=== PATIENT | female | born 1950 | race Caucasian/White ===

== ENCOUNTER 2019-06-23 10:35 | Emergency (ER) | payer MEDICARE ==
[~2019-06-23] VITALS: Ht 172.7 cm; Wt 95.5 kg
--- NOTE | 2019-06-23 11:07 | NUR ---
[employer]ORER: PT AMBULATORY TO ROOM FROM LOBBY
--- NOTE | 2019-06-23 11:20 | NUR ---
LUNCH RN: PT PRESENTING TO ER FOR EPIGASTRIC PAIN RADIATING TO RUQ AND BILATERAL FLANK INTERMITTENT. PAIN CAUSING NAUSEA, NO V/D. CONNECTED TO ALL MONITORING, HTN AND IRREGULAR RHYTHM NOTED. HX OF AFIB ON BLOOD THINNER. IV PLACED, LABS DRAWN. PT UP TO RESTROOM WITH STEADY GAIT, UA COLLECTED AND SENT TO LAB. BLANKET PROVIDED. CALL LIGHT WITHIN REACH.
[2019-06-23] MEDS ORDERED: MORPHINE SULFATE 4 MG/ML, 1ML IVPush PRN (11:30)
[2019-06-23] MEDS ORDERED: ONDANSETRON 2MG/ML, 2ML IVPush ONE (11:30)
[2019-06-23 11:52] LABS: BASOPHILS # (AUTO) 0.02 x10^3/uL (0-0.1); BASOPHILS % (AUTO) 0 % (0-1); EOSINOPHILS # (AUTO) 0.08 x10^3/uL (0-0.4); EOSINOPHILS % (AUTO) 1 % (1-7); LYMPHOCYTES # (AUTO) 1.74 x10^3/uL (1-3.4); LYMPHOCYTES % (AUTO) 30 % (22-44); MD NO; MEAN CORPUSCULAR HEMOGLOBIN 31.3 pg (27.0-34.8); MEAN CORPUSCULAR HGB CONC 33.5 g/dL (32.4-35.8); MEAN CORPUSCULAR VOLUME 93.5 fL (80-100); MEAN PLATELET VOLUME 7.3 fL (7.4-10.4); MONOCYTES # (AUTO) 0.51 x10^3/uL (0.2-0.8); MONOCYTES % (AUTO) 9 % (2-9); NEUTROPHILS # (AUTO) 3.39 x10^3/uL (1.8-6.8); NEUTROPHILS % (AUTO) 59 % (42-75); PLATELET COUNT 216 x10^3/uL (130-400); RED BLOOD COUNT 4.53 x10^6/uL (3.82-5.3); RED CELL DISTRIBUTION WIDTH 13.9 % (9.6-15.2)
--- NOTE | 2019-06-23 12:00 | NUR ---
report received from CLEMENTINA Zhao, pt is a&o, resps even and unlabored, nadn. pt has no complaint at this time. awaiting labs and dispo, pt declining pain medication.
[2019-06-23 12:03] LABS: INTERNATIONAL NORMALIZED RATIO 0.98 (0.93-1.1); PROTHROMBIN TIME 10.4 Seconds (9.6-11.5)
[2019-06-23 12:04] LABS: ALBUMIN 4.2 g/dL (3.4-5.0); ANION GAP 6 mmol/L (5-15); CALCIUM 9.3 mg/dL (8.5-10.1); CHLORIDE 109 mmol/L (98-107)
[2019-06-23 12:08] LABS: MICROSCOPIC INDICATED
[2019-06-23 12:10] LABS: ALANINE AMINOTRANSFERASE 28 U/L (12-78); ALKALINE PHOSPHATASE 66 U/L (45-117); BILIRUBIN,TOTAL 0.8 mg/dL (0.2-1.0); CREATININE 0.88 mg/dL (0.55-1.02); TOTAL PROTEIN 7.9 g/dL (6.4-8.2); TROPONIN I < 0.015 ng/mL (0.000-0.045)
[2019-06-23] MEDS ORDERED: SODIUM CHLORIDE FLUSH 10ML SYR IVF ONE (12:30)
[2019-06-23 12:36] LABS: CULTURE INDICATED? YES
--- NOTE | 2019-06-23 13:20 | NUR ---
PT TO CT.
[2019-06-23] MEDS ORDERED: PLEASE ENTER ALLERGIES MC SCH (13:30)
[2019-06-23] MEDS ORDERED: ACETAMINOPHEN 325 MG TABLET PO ONE (13:30)
[2019-06-23] MEDS ORDERED: ACETAMINOPHEN 325 MG TABLET ONE (13:49)
--- NOTE | 2019-06-23 13:52 | NUR ---
PT BACK FROM CT. PT DENIES NEED FOR MORPHINE, REQ TYLENOL. PT A&O, RESPS EVEN AND UNLABORED, NO N/V . ALL RESULTS BACK, CHART UP FOR RECHECK, JOHN MARISCAL AND DISPO.
--- NOTE | 2019-06-23 15:03 | NUR ---
DC ORDERS RECEIVED, AWAITING PAPERWORK FROM AT THIS TIME.
--- NOTE | 2019-06-23 15:08 | NUR ---
pt up to bathroom with steady gait, now back in bed. pt informed of POC, awaiting dc paperwork. report given to CLEMENTINA Aly.
--- NOTE | 2019-06-23 15:21 | NUR ---
REPORT FROM CLEMENTINA FAY.PT SITTING UP IN [facility]. READING A BOOK. DISCUSSION WITH ERP REGARDING POC (ESOPHAGRAM). PT UPDATED. PT STATES "I'D RATHER NOT GET THAT STUDY, I JUST HAD A BARRIUM SWALLOW TEST RECENTLY". PT ELECTING FOR DC. ERP AWARE. AWAITING ORDERS.
[2019-06-23] MEDS ORDERED: MAALOX/HYOSCYAMINE/LIDOCAINE 45 ML BTL ONE (15:26)
[2019-06-23 15:30] VITALS: BP 174/82
--- NOTE | 2019-06-23 15:30 | NUR ---
PT MEDICATED WITH GI COCKTAIL PER VERBAL ORDER
--- NOTE | 2019-06-23 15:47 | NUR ---
PT REPORTS MILD IMPROVEMENT IN PAIN, CONTINUES TO REFUSE ORDERED MORPHINE/ZOFRAN. POC IS DC. IV DC'D. PT OFF MONITORING AND ASKED TO DRESS. AWAITING DC PAPERWORK
[2019-06-23] MEDS ORDERED: MAALOX/HYOSCYAMINE/LIDOCAINE 45 ML BTL PO ONE (16:00)
--- NOTE | 2019-06-23 16:00 | NUR ---
DC EDUCATION PROVIDED, PT DEMONSTRATES UNDERSTANDING. PT AMBUALTED STEADILY TO DC WITH RN.
[2019-06-23] MEDS ORDERED: OMNIPAQUE 350 MG/ML, 100ML BOTTLE ONE (18:03)
== END 2019-06-23 16:17 ==
LOC: ED 16:11
DX: R10.11 Right upper quadrant pain (principal); R10.13 Epigastric pain; R19.7 Diarrhea, unspecified; I10 Essential (primary) hypertension; I48.91 Unspecified atrial fibrillation; Z87.891 Personal history of nicotine dependence
CPT/HCPCS: 36415; 74177; 80053; 81001; 83605; 83690; 84484; 85025; 85610; 85730; 87086; 93005; 99285; Q9967